=== PATIENT | male | born 1975 ===

== ENCOUNTER 2021-09-20 12:40 | Inpatient (IN) | payer BC ==
[~2021-09-20 12:40] MED LIST: Iopamidol 370 76% 100 ML VIAL ONE
[2021-09-20 13:42] LABS: #Basophils 0.1 thou/uL (0.0-0.2); #Eosinphils 0.1 thou/uL (0.0-0.7); #Lymphocytes 0.6 thou/uL (1.20-3.40); #Monocytes 0.4 thou/uL (0.11-0.59); #Neutrophils 6.1 thou/uL (1.40-6.50); %Basophils 0.8 % (0.0-1.0); %Eosinophils 1.3 % (0.0-10.0); %Lymphocytes 8.5 % (21.0-51.0); %Monocytes 5.1 % (0.0-10.0); %Neutrophils 84.3 % (42.0-75.0); Hemoglobin 16.1 g/dL (14.0-18.0); Mean Corpuscular HGB CONC 35.1 g/dL (32.0-36.0); Mean Corpuscular Hemoglobin 31.9 pg (27.0-31.0); Mean Corpuscular Volume 90.7 fL (78.0-98.0); Mean Platelet Volume 10.4 fL (7.4-10.4); Platelet Count 311 thou/uL (130-400); RBC Distribution Width 11.3 % (11.5-14.5); Red Blood Cell (RBC) Count 5.04 mill/uL (4.70-6.10); White Blood Cell (WBC) Count 7.3 thou/uL (4.8-10.8)
[2021-09-20 13:49] LABS: Actual Bicarbonate (HCO3v) 26 mEq/L (22-28); Analyzer IN Cardio ER; Calcium, Ionized (venous) 1.05 mmol/L (1.16-1.32); Chloride (VBG) 90 mmol/L (98-106); Hemoglobin (Hb) 16.7 g/dL (13.1-17.2); Sodium 130.7 mmol/L (133-146); pH (venous) 7.48 (7.32-7.43)
[2021-09-20 14:08] LABS: ALT (SGPT) 50 U/L (8-55); AST (SGOT) 39 U/L (5-34); Albumin 3.2 g/dL (3.5-5.0); Alkaline Phosphatase 60 U/L (40-110); Anion Gap 18 mmol/L (10-20); BUN (Urea Nitrogen) 14 mg/dL (8.9-20.6); Bilirubin, Total 1.3 mg/dL (0.2-1.2); Calc. Creatinine Clearance 0 mL/min (70-130); Calcium 8.7 mg/dL (7.8-10.44); Carbon Dioxide 29 mmol/L (22-29); Chloride 88 mmol/L (98-107); Globulin 3.8 g/dL (2.4-3.5); Potassium 3.4 mmol/L (3.5-5.1); Sodium 132 mmol/L (136-145)
[2021-09-20 14:13] LABS: Glucose 574 mg/dL (70-105)
[2021-09-20] MEDS ORDERED: Insulin Regular 300 UNITS/3 ML VIAL ONE (15:57)
[2021-09-20 16:00] LABS: SARS-CoV-2 NAA Rapid Test DETECTED (NotDetected)
[2021-09-20 17:07] LABS: Lactic Acid 2.3 mmol/L (0.5-2.2)
[2021-09-20] MEDS ORDERED: Acetaminophen 325 MG TAB PO PRN (17:11)
[2021-09-20] MEDS ORDERED: Guaifenesin DM 100-10/5 ML UDCUP PO PRN (17:11)
[2021-09-20] MEDS ORDERED: Ondansetron ODT 4 MG TAB PO PRN (17:11)
[2021-09-20] MEDS ORDERED: Dextrose 50% Abboject 50 ML SYRINGE SLOW IVP PRN ×2 (17:11→22:19)
[2021-09-20] MEDS ORDERED: Dextrose 5% in Water 1,000 ML IV PRN ×2 (17:11→22:19)
[2021-09-20] MEDS ORDERED: Acetaminophen 650 MG Suppository PR PRN (17:11)
[2021-09-20] MEDS ORDERED: HumaLOG 300 UNITS/3 ML VIAL SC PRN (17:11)
[2021-09-20] MEDS ORDERED: Electrolyte Replacement Protocol 1 EACH FS SCH (17:15)
[2021-09-20 17:53] LABS: Hemoglobin A1c 11.9 % (4.0-6.0)
[2021-09-20 18:06] LABS: Cardiac Risk 5.1 (Less than 4.5); Cholesterol 108 mg/dl (< 200 Desired); HDL Cholesterol 21 mg/dL (>60 Neg Risk); LDL Cholesterol, Calculated 68 mg/dL; Magnesium 2.2 mg/dL (1.6-2.6); Phosphorus 2.6 mg/dL (2.3-4.7); Triglycerides 97 mg/dL (Less than 150)
[2021-09-20 18:07] LABS: Anion Gap 19 mmol/L (10-20); BUN (Urea Nitrogen) 13 mg/dL (8.9-20.6); CRP (Inflammatory) 12.22 mg/dL (= or < 0.5); Calc. Creatinine Clearance 0 mL/min (70-130); Calcium 8.6 mg/dL (7.8-10.44); Carbon Dioxide 23 mmol/L (22-29); Chloride 94 mmol/L (98-107); Glucose 451 mg/dL (70-105); Potassium 3.3 mmol/L (3.5-5.1); Sodium 133 mmol/L (136-145)
[2021-09-20 19:33] VITALS: BMI 45.1
[2021-09-20] MEDS ORDERED: Pharmacy to Dose REMDESIVIR IVPB PRN (19:48)
[2021-09-20] MEDS ORDERED: Lactated Ringer's 1,000 ML IV SCH ×2 (20:15→21:15)
[2021-09-20] MEDS ORDERED: Magnesium 2 GM/50 ML 2 GM in Premix Bag 1 BAG IVPB SCH (20:15)
[2021-09-20] MEDS ORDERED: Potassium Chloride 20 MEQ TAB PO SCH (20:30)
[2021-09-20] MEDS ORDERED: Lantus 1000 UNITS/10 ML VIAL SC SCH (21:00)
[2021-09-21] MEDS ORDERED: Dextrose 5% in Water 1,000 ML IV PRN (02:07)
[2021-09-21] MEDS ORDERED: Dextrose 50% Abboject 50 ML SYRINGE SLOW IVP PRN (02:07)
[2021-09-21] MEDS: HumaLOG 300 UNITS/3 ML VIAL SC PRN ×7 (02:11→23:47)
[2021-09-21 03:06] LABS: Bacteria/HPF None Seen HPF (None Seen); Bilirubin Negative (Negative); Blood, Urine Negative (Negative); Clarity Clear (Clear); Glucose, Urine (Dipstick) Greater than 1000 mg/dL (Negative); Ketone, Urine 80 mg/dL (Negative); Leukocyte Negative Leu/uL (Negative); Nitrite Negative (Negative); Protein, Urine (Dipstick) 10 mg/dL (Neg-Trace); RBC/HPF 0-3 HPF (0-3); Specific Gravity, Urine 1.044 (1.002-1.036); Squamous Epithelial 0-3 HPF (0-3); Urobilinogen Normal mg/dL (Less than 2); WBC/HPF 0-3 HPF (0-3)
[2021-09-21 03:08] LABS: Urine Culture Reflex No No
[2021-09-21] MEDS: Lactated Ringer's 1,000 ML IV SCH ×3 (04:57→16:15)
[2021-09-21 05:49] LABS: #Lymphocytes 0.8 thou/uL (1.20-3.40); #Monocytes 0.5 thou/uL (0.11-0.59); #Neutrophils 5.6 thou/uL (1.40-6.50); %Eosinophils 0.1 % (0.0-10.0); %Lymphocytes 10.9 % (21.0-51.0); %Monocytes 7.4 % (0.0-10.0); %Neutrophils 81.6 % (42.0-75.0); Hemoglobin 14.8 g/dL (14.0-18.0); Mean Corpuscular HGB CONC 34.1 g/dL (32.0-36.0); Mean Corpuscular Hemoglobin 30.6 pg (27.0-31.0); Mean Corpuscular Volume 89.7 fL (78.0-98.0); Mean Platelet Volume 10.5 fL (7.4-10.4); Platelet Count 324 thou/uL (130-400); RBC Distribution Width 11.1 % (11.5-14.5); Red Blood Cell (RBC) Count 4.83 mill/uL (4.70-6.10); White Blood Cell (WBC) Count 6.9 thou/uL (4.8-10.8)
[2021-09-21 06:09] LABS: ALT (SGPT) 47 U/L (8-55); AST (SGOT) 33 U/L (5-34); Alkaline Phosphatase 55 U/L (40-110); Anion Gap 19 mmol/L (10-20); BUN (Urea Nitrogen) 14 mg/dL (8.9-20.6); Bilirubin, Total 0.8 mg/dL (0.2-1.2); Calc. Creatinine Clearance 222 mL/min (70-130); Calcium 8.8 mg/dL (7.8-10.44); Carbon Dioxide 23 mmol/L (22-29); Chloride 97 mmol/L (98-107); Globulin 3.4 g/dL (2.4-3.5); Glucose 421 mg/dL (70-105); Potassium 3.3 mmol/L (3.5-5.1); Protein, Total 6.4 g/dL (6.0-8.3); Sodium 136 mmol/L (136-145)
[2021-09-21 06:28] LABS: Magnesium 2.2 mg/dL (1.6-2.6)
[2021-09-21] MEDS ORDERED: Potassium Chloride 20 MEQ TAB PO SCH (07:00)
[2021-09-21 08:25] LABS: Troponin I 0.034 ng/mL (< 0.028)
[2021-09-21] MEDS: Enoxaparin Sodium 40 MG/0.4 ML SYRINGE SC SCH (08:33)
[2021-09-21] MEDS: Polyethylene Glycol 3350 17 GM Packet PO SCH (08:33)
[2021-09-21] MEDS: Ascorbic Acid 500 mg Chewable Tablet PO SCH (08:34)
[2021-09-21] MEDS: Zinc Sulfate 220 MG CAP PO SCH (08:34)
[2021-09-21] MEDS: Cholecalciferol (Vitamin D3) 400 UNITS TAB PO SCH (08:34)
[2021-09-21] MEDS ORDERED: Lantus 1000 UNITS/10 ML VIAL SC SCH ×4 (09:00→21:00)
[2021-09-21] MEDS ORDERED: FLU VACC QS2021-22(6MOS UP)/PF 60 MCG/0.5 ML SYRINGE IM ONE (09:00)
[2021-09-21] MEDS: metFORMIN 500 MG TAB PO SCH ×2 (16:08→20:48)
[2021-09-22] MEDS: Lactated Ringer's 1,000 ML IV SCH ×3 (03:15→22:45)
[2021-09-22] MEDS: HumaLOG 300 UNITS/3 ML VIAL SC PRN ×5 (05:46→20:39)
[2021-09-22 05:50] LABS: #Lymphocytes 1.3 thou/uL (1.20-3.40); #Monocytes 0.5 thou/uL (0.11-0.59); #Neutrophils 4.6 thou/uL (1.40-6.50); %Basophils 0.1 % (0.0-1.0); %Eosinophils 0.8 % (0.0-10.0); %Lymphocytes 19.6 % (21.0-51.0); %Monocytes 7.5 % (0.0-10.0); %Neutrophils 72.1 % (42.0-75.0); Hemoglobin 14.9 g/dL (14.0-18.0); Mean Corpuscular HGB CONC 34.6 g/dL (32.0-36.0); Mean Corpuscular Hemoglobin 31.4 pg (27.0-31.0); Mean Corpuscular Volume 90.8 fL (78.0-98.0); Mean Platelet Volume 10.5 fL (7.4-10.4); Platelet Count 325 thou/uL (130-400); RBC Distribution Width 11.2 % (11.5-14.5); Red Blood Cell (RBC) Count 4.73 mill/uL (4.70-6.10); White Blood Cell (WBC) Count 6.4 thou/uL (4.8-10.8)
[2021-09-22 06:07] LABS: ALT (SGPT) 68 U/L (8-55); AST (SGOT) 79 U/L (5-34); Albumin 2.8 g/dL (3.5-5.0); Alkaline Phosphatase 52 U/L (40-110); Anion Gap 15 mmol/L (10-20); BUN (Urea Nitrogen) 16 mg/dL (8.9-20.6); Calc. Creatinine Clearance 236 mL/min (70-130); Calcium 8.6 mg/dL (7.8-10.44); Carbon Dioxide 27 mmol/L (22-29); Chloride 100 mmol/L (98-107); Globulin 3.2 g/dL (2.4-3.5); Glucose 273 mg/dL (70-105); Potassium 3.3 mmol/L (3.5-5.1); Sodium 139 mmol/L (136-145)
[2021-09-22] MEDS ORDERED: Potassium Chloride 20 MEQ TAB PO SCH (07:00)
[2021-09-22] MEDS ORDERED: Lantus 1000 UNITS/10 ML VIAL SC SCH ×2 (07:28→21:00)
[2021-09-22] MEDS ORDERED: HumaLOG 300 UNITS/3 ML VIAL ONE ×2 (08:21→10:30)
[2021-09-22] MEDS: Cholecalciferol (Vitamin D3) 400 UNITS TAB PO SCH (08:31)
[2021-09-22] MEDS: metFORMIN 500 MG TAB PO SCH ×2 (08:31→20:38)
[2021-09-22] MEDS: Zinc Sulfate 220 MG CAP PO SCH (08:31)
[2021-09-22] MEDS: Ascorbic Acid 500 mg Chewable Tablet PO SCH (08:31)
[2021-09-22] MEDS: Enoxaparin Sodium 40 MG/0.4 ML SYRINGE SC SCH (08:32)
[2021-09-22] MEDS: Polyethylene Glycol 3350 17 GM Packet PO SCH (10:37)
[2021-09-23] MEDS: HumaLOG 300 UNITS/3 ML VIAL SC PRN ×4 (01:31→12:31)
[2021-09-23 05:06] LABS: #Eosinphils 0.1 thou/uL (0.0-0.7); #Lymphocytes 1.4 thou/uL (1.20-3.40); #Monocytes 0.4 thou/uL (0.11-0.59); #Neutrophils 3.3 thou/uL (1.40-6.50); %Basophils 0.4 % (0.0-1.0); %Eosinophils 2.3 % (0.0-10.0); %Monocytes 7.4 % (0.0-10.0); Mean Corpuscular HGB CONC 32.3 g/dL (32.0-36.0); Mean Corpuscular Hemoglobin 29.2 pg (27.0-31.0); Mean Corpuscular Volume 90.5 fL (78.0-98.0); Mean Platelet Volume 10.2 fL (7.4-10.4); Platelet Count 328 thou/uL (130-400); RBC Distribution Width 11.3 % (11.5-14.5); Red Blood Cell (RBC) Count 5.12 mill/uL (4.70-6.10); White Blood Cell (WBC) Count 5.2 thou/uL (4.8-10.8)
[2021-09-23 05:22] LABS: ALT (SGPT) 95 U/L (8-55); AST (SGOT) 82 U/L (5-34); Albumin 2.7 g/dL (3.5-5.0); Alkaline Phosphatase 51 U/L (40-110); Anion Gap 16 mmol/L (10-20); BUN (Urea Nitrogen) 14 mg/dL (8.9-20.6); Calc. Creatinine Clearance 255 mL/min (70-130); Calcium 8.4 mg/dL (7.8-10.44); Carbon Dioxide 26 mmol/L (22-29); Chloride 106 mmol/L (98-107); Glucose 175 mg/dL (70-105); Potassium 3.2 mmol/L (3.5-5.1); Protein, Total 5.7 g/dL (6.0-8.3); Sodium 145 mmol/L (136-145)
[2021-09-23] MEDS ORDERED: Potassium Chloride 20 MEQ TAB PO SCH (07:00)
[2021-09-23] MEDS: metFORMIN 500 MG TAB PO SCH (08:21)
[2021-09-23] MEDS: Polyethylene Glycol 3350 17 GM Packet PO SCH (08:22)
[2021-09-23] MEDS: Zinc Sulfate 220 MG CAP PO SCH (08:22)
[2021-09-23] MEDS: Ascorbic Acid 500 mg Chewable Tablet PO SCH (08:22)
[2021-09-23] MEDS: Cholecalciferol (Vitamin D3) 400 UNITS TAB PO SCH (08:22)
[2021-09-23] MEDS: Enoxaparin Sodium 40 MG/0.4 ML SYRINGE SC SCH (08:23)
[2021-09-23 12:35] VITALS: BP 143/91; TEMP 98.5
== END 2021-09-23 13:21 | disposition home or self-care (01) | DRG 177 ==
LOC: ERS 12:40 → 2SW 14:57
PROVIDERS: ADMIT Family Medicine; ATTEND Family Medicine
PROC: 8E0ZXY6 Isolation (ICD-10-PCS; principal; 2021-09-20)
DX: U07.1 COVID-19 (principal); J12.82 Pneumonia due to coronavirus disease 2019; N17.9 Acute kidney failure, unspecified; Z68.42 Body mass index [BMI] 45.0-49.9, adult; I42.9 Cardiomyopathy, unspecified; E87.2 Acidosis; E11.65 Type 2 diabetes mellitus with hyperglycemia; R00.1 Bradycardia, unspecified; N18.2 Chronic kidney disease, stage 2 (mild); E11.22 Type 2 diabetes mellitus with diabetic chronic kidney disease; E66.01 Morbid (severe) obesity due to excess calories; K21.9 Gastro-esophageal reflux disease without esophagitis; E86.0 Dehydration; I12.9 Hypertensive chronic kidney disease with stage 1 through stage 4 chronic kidney disease, or unspecified chronic kidney disease; F10.10 Alcohol abuse, uncomplicated; Z88.0 Allergy status to penicillin; Z87.891 Personal history of nicotine dependence; Z79.899 Other long term (current) drug therapy
CPT/HCPCS: 0240U; 36415; 36416; 71045; 71275; 80053; 80061; 81001; 82010; 82805; 83036; 83605; 83735; 83930; 84100; 84484; 84681; 85025; 86140; 87040; 93005; 93010; 93306; 96374; J1650; J1815; J3475; J7120; Q9967